=== PATIENT | female | born 1985 | race Caucasian/White ===

== ENCOUNTER 2017-07-24 13:15 | Emergency (ER) | payer SELFPAY ==
[2017-07-24] MEDS ORDERED: diphenhydrAMINE 50 MG/ML VIAL ONE (14:26)
[2017-07-24] MEDS ORDERED: Ketorolac Tromethamine 30 MG/ML VIAL ONE (14:26)
[2017-07-24] MEDS ORDERED: Metoclopramide HCl 10 MG/2 ML VIAL ONE (14:26)
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
== END 2017-07-24 16:45 | disposition home or self-care (01) ==
LOC: ERS 13:15
DX: G43.909 Migraine, unspecified, not intractable, without status migrainosus (principal); K02.9 Dental caries, unspecified; K03.81 Cracked tooth; F41.9 Anxiety disorder, unspecified; F17.210 Nicotine dependence, cigarettes, uncomplicated
CPT/HCPCS: 70450; 96365; 96366; 96375; 99406; J1200; J1885; J2765

== ENCOUNTER 2017-10-11 12:26 | Emergency (ER) | payer SELFPAY ==
[2017-10-11] MEDS ORDERED: HYDROcodone/Acetaminophen 5/325 mg Tablet ONE (14:10)
== END 2017-10-11 14:25 | disposition home or self-care (01) ==
LOC: ERS 12:26
DX: H60.11 Cellulitis of right external ear (principal); F41.9 Anxiety disorder, unspecified; F17.210 Nicotine dependence, cigarettes, uncomplicated